=== PATIENT | male | born 1955 | race Caucasian/White ===

== ENCOUNTER 2022-11-12 10:00 | Outpatient (RCR) | payer MEDICARE, BC, SELFPAY | END 2023-03-12 23:59 | disposition home or self-care (01) | PROVIDERS: PCP Surgery; Visit Provider Surgery | DX: M25.562 Pain in left knee (principal); Z51.89 Encounter for other specified aftercare | CPT/HCPCS: 97110; 97140; 97162 ==

== ENCOUNTER 2023-07-02 10:06 | Outpatient (CLI) | payer MEDICARE, BC, SELFPAY ==
--- NOTE | 2023-07-02 10:15 | CRLHL7_ITS ---
For Patients: As a result of the Century Cures Act, medical imaging exams and procedure reports are released immediately into your electronic medical record. You may view this report before your referring provider. If you have questions, please contact your health care provider. INDICATION: Asymmetric sensorineural hearing loss. TECHNIQUE: Multiplanar multisequence MR imaging of the brain and internal auditory canals prior to and following intravenous contrast. COMPARISON: None. FINDINGS: Prominence of the ventricles and sulci compatible with minimal diffuse cerebral volume loss. No mass effect or midline shift. Few punctate FLAIR hyperintensities in the supratentorial white matter, typical for minimal chronic microvascular ischemic changes. No intracranial hemorrhage or pathologic extra-axial fluid collection. No diffusion restriction to suggest acute infarction. No pathologic intracranial enhancement. No mass or pathologic enhancement within the internal auditory canals or cerebellopontine angles. No concerning signal abnormalities in the inner ear structures. No vascular loop within the internal auditory canals. The major arterial flow voids of the skullbase are preserved. The globes are symmetric. Minimal paranasal sinus mucosal thickening. The mastoid air cells are clear. IMPRESSION: 1. No acute intracranial abnormality. 2. No mass or pathologic enhancement within the internal auditory canals or cerebellopontine angles. 3. Minimal chronic microvascular ischemic changes and diffuse cerebral volume loss. Dictated by Kehinde Avelar MD @ 07/02/2023 9:39:42 PM (Electronically Signed)
== END 2023-07-02 10:07 | disposition home or self-care (01) ==
PROVIDERS: PCP Surgery; Visit Provider Student in an Organized Health Care Education/Training Program
DX: H90.3 Sensorineural hearing loss, bilateral (principal); I67.82 Cerebral ischemia; R42 Dizziness and giddiness
CPT/HCPCS: 70553; A9575

== ENCOUNTER 2025-03-16 12:38 | Outpatient (CLI) | payer MEDICARE, BC, SELFPAY ==
--- NOTE | 2025-03-16 13:00 | CRLHL7_ITS ---
For Patients: As a result of the Century Cures Act, medical imaging exams and procedure reports are released immediately into your electronic medical record. You may view this report before your referring provider. If you have questions, please contact your health care provider. Indication: Cervicogenic dizziness Technique: Multiplanar, multisequence MRI of the cervical spine obtained without contrast. Comparison: None. Findings: The normal cervical lordosis is preserved. No significant spondylolisthesis. Vertebral body heights are within normal limits. No evidence of acute fracture. Bone marrow signal is unremarkable. Included posterior fossa structures are unremarkable. Visualized spinal cord appears normal in course and caliber. No convincing cord signal abnormality. No suspicious findings in the prevertebral or paraspinal soft tissues. C2-C3: Mild left facet arthropathy. No neural foraminal or spinal canal stenosis. C3-C4: Mild uncovertebral and left facet arthropathy. Mild bilateral neural foraminal narrowing. No spinal canal stenosis. C4-C5: Mild uncovertebral and left facet arthropathy. Mild bilateral neural foraminal narrowing. No spinal canal stenosis. C5-C6: Uncovertebral arthropathy. Moderate bilateral neural foraminal stenosis. No spinal canal stenosis. C6-C7: Shallow posterior disc bulge, uncovertebral arthropathy. No left, moderate right neural foraminal stenosis. No spinal canal stenosis. C7-T1: No neural foraminal or spinal canal stenosis. Impression: 1. Cervical spondylosis as detailed. 2. Moderate neural foraminal stenosis bilaterally at C5-6 and on the right at C6-7. 3. Mild neural foraminal narrowing elsewhere. 4. No spinal canal stenosis. Dictated by Fariba Castro MD @ 03/16/2025 4:30:20 PM (Electronically Signed)
== END 2025-03-16 12:39 | disposition home or self-care (01) ==
LOC: MRI 12:42
PROVIDERS: PCP Surgery; Visit Provider Psychiatry & Neurology Neurology
DX: R42 Dizziness and giddiness (principal); M47.892 Other spondylosis, cervical region; M48.02 Spinal stenosis, cervical region; R26.89 Other abnormalities of gait and mobility; R29.898 Other symptoms and signs involving the musculoskeletal system
CPT/HCPCS: 72141